=== PATIENT | male | born 1970 | race Caucasian/White ===

== ENCOUNTER 2022-01-28 17:59 | Emergency (ER) | payer OTHER ==
[~2022-01-28] VITALS: Ht 190.5 cm; Wt 147.7 kg
[2022-01-28 18:07] VITALS: BP 130/97
--- NOTE | 2022-01-28 18:36 | PHYS DOC ---
Past History Additional Past Medical Histor: drug use Past Surgical History: No Surgical History General Adult EDM: Chief Complaint: CHEST PAIN HPI: HPI: Patient is a 51-year-old male brought in by EMS for chest pain x3 days. Patient also had an episode of emesis about 20 minutes prior to calling EMS. Patient states the pain is sharp, stabbing in sensation and comes and goes. Patient states he smokes marijuana about 2 days ago but the pain was there prior. Patient does have back cigarettes a day and drinks about a pint of alcohol. Has a history of hypertension. Denies any personal or immediate family history of heart disease. Review of Systems: Review of Systems: All other systems within normal limits except for as noted in the HPI Allergies: Allergies: Allergies Coded Allergies Type Severity Reaction Last Updated Verified No Known Drug Allergies 01/28/22 No Physical Exam: PE: Constitutional: Well developed, well nourished, no acute distress, non-toxic appearance. [] HENT: Normocephalic, atraumatic, bilateral external ears normal, nose normal. [] Eyes: PERRLA, conjunctiva normal, no discharge. [] Neck: No rigidity, supple, no stridor. [] Cardiovascular: Regular rate and rhythm, brisk cap refill. Symmetric radial pulses. Chest pain not reproducible with palpation [] Lungs & Thorax: Non labored symmetric respirations, no tachypnea or respiratory distress [] Abdomen: Soft, nondistended. Skin: Warm, dry, no erythema, no rash. [] Back: Unremarkable Extremities: No deformities, range of motion grossly intact, no lower extremity edema [] Neurologic: Alert and oriented X 3, no focal deficits noted. [] Psychologic: Affect normal, judgement normal, mood normal. [] Current Patient Data: Vital Signs: Vital Signs Date Time Temp Pulse Resp B/P (MAP) Pulse Ox O2 Delivery O2 Flow Rate FiO2 01/28/22 18:07 98.1 91 18 130/97 (108) 96 Room Air EKG: EKG: Sinus rhythm, heart rate 91 bpm, normal axis, no STEMI [] Radiology/Procedures: Radiology/Procedures: [] Heart Score: C/O Chest Pain: Yes HEART Score for Chest Pain: HEART Score for Chest Pain Response (Comments) Value History Slighlty/Non-Suspicious 0 ECG Nonspecific Repolarizatio 1 Age >45 - < 65 1 Risk Factors 1 or 2 Risk Factors 1 Troponin < Normal Limit 0 Total 3 Risk Factors: Risk Factors: DM, Current or recent (<one month) smoker, HTN, HLP, family history of CAD, obesity. Risk Scores: Score 0 - 3: 2.5% MACE over next 6 weeks - Discharge Home Score 4 - 6: 20.3% MACE over next 6 weeks - Admit for Clinical Observation Score 7 - 10: 72.7% MACE over next 6 weeks - Early Invasive Strategies Course & Med Decision Making: Course & Med Decision Making Pertinent Labs and Imaging studies reviewed. (See chart for details) [] Dragon Disclaimer: Dragon Disclaimer: This electronic medical record was generated, in whole or in part, using a voice recognition dictation system. Departure Departure: Impression: Primary Impression: Chest pain Disposition: HOME / SELF CARE / HOMELESS Condition: STABLE Referrals: PCP,NO (PCP) Patient Instructions: Chest Pain (Nonspecific)-Brief OMID FOOTE MD January 28, 2022 18:36
[2022-01-28] MEDS ORDERED: IV NORMAL SALINE 1,000ML 1,000 ML IV SCH (18:45)
[2022-01-28] MEDS ORDERED: ONDANSETRON PF 4 MG/2 ML VIAL. IVP ONE (18:45)
[2022-01-28 19:03] LABS: BASO # 0.1 x10^3/uL (0.0-0.2); BASO % 1 % (0-3); EOS # 0.2 x10^3/uL (0.0-0.7); EOS % 3 % (0-3); HEMATOCRIT 45.9 % (39.0-53.0); HEMOGLOBIN 16.1 g/dL (13.0-17.5); LYMPH % 23 % (24-48); MEAN CORPUSCULAR HEMOGLOBIN 34 pg (25-35); MEAN CORPUSCULAR HGB CONC 35 g/dL (31-37); MEAN CORPUSCULAR VOLUME 98 fL (79-100); MONO # 0.6 x10^3/uL (0.0-1.1); MONO % 7 % (0-9); NEUT # 5.8 x10^3uL (1.8-7.7); NEUT % 66 % (31-73); PLATELET COUNT 214 x10^3/uL (140-400); RED BLOOD COUNT 4.68 x10^6/uL (4.30-5.70); RED CELL DISTRIBUTION WIDTH 13.3 % (11.5-14.5); WHITE BLOOD COUNT 8.8 x10^3/uL (4.0-11.0)
[2022-01-28 19:13] LABS: CREATININE 0.7 mg/dL (0.7-1.3); GFR 118.9; POTASSIUM 3.9 mmol/L (3.5-5.1)
[2022-01-28 19:25] LABS: ALBUMIN 3.1 g/dL (3.4-5.0); ALBUMIN/GLOBULIN RATIO 0.9 (1.0-1.7); MAGNESIUM 1.6 mg/dL (1.8-2.4); TOTAL BILIRUBIN 0.2 mg/dL (0.2-1.0); TOTAL PROTEIN 6.5 g/dL (6.4-8.2)
--- NOTE | 2022-01-28 20:06 | RAD ---
Exam: Chest 2 views INDICATION: Left chest pain, pain TECHNIQUE: Frontal and lateral views the chest Comparisons: None FINDINGS: The cardiomediastinal silhouette and pulmonary vessels are within normal limits. Rounded density overlying the paraspinal region seen best on lateral view measuring approximately 2.4 cm no pleural effusion. IMPRESSION: Rounded density in the paraspinal region seen only on lateral view. Recommend CT of the chest with co ntrast better evaluate Electronically signed by: Stuart Riley MD (01/28/2022 8:04 PM) T[place]
--- NOTE | 2022-01-28 20:54 | RAD ---
CT of the chest without contrast: Clinical History: Reason: Nodule on cxr, right sided chest pain / Spl. Instructions: / History: . Axial helical images of the chest were obtained without contrast. There is a minimally displaced fracture of the distal left second rib. There is mild deformity of the distal right fifth rib. There is a 6 mm x 4 mm pulmonary nodule in the left upper lobe. There is no mediastinal or hilar lymphadenopathy. Impression: 1. Noncalcified pulmonary nodule in the left likely a granuloma. Recommend a 6 month follow-up CT jade without contrast. 2. Minimally displaced rib fractures of uncertain age. End of impression PQRS Compliance Statement: One or more of the following individualized dose reduction techniques were utilized for this examinat ion: 1. Automated exposure control 2. Adjustment of the mA and/or kV according to patient size 3. Use of iterative reconstruction technique Electronically signed by: Eduard Dick III, MD (01/28/2022 8:52 PM) [facility]
[2022-01-28 22:26] LABS: BACTERIA,URINE 0 /HPF (0-FEW); CLARITY,URINE CLEAR; COLOR,URINE YELLOW; GLUCOSE,URINE NEG (NEG); NITRITE,URINE NEG (NEG); RBC,URINE OCC /HPF (0-2); SQUAMOUS EPITHELIAL CELL,UR OCC /LPF; WBC,URINE 0 /HPF (0-4)
[2022-01-28 22:38] LABS: AMPHETAMINE/METHAMPHETAMINE POS (NEG); BARBITURATES NEG (NEG); BENZODIAZEPINES NEG (NEG); CANNABINOIDS NEG (NEG); COCAINE NEG (NEG); METHADONE NEG (NEG); OPIATES NEG (NEG); PHENCYCLIDINE NEG (NEG)
== END 2022-01-28 23:18 | disposition home or self-care (01) ==
LOC: ER 17:59
DX: R07.89 Other chest pain (principal)
CPT/HCPCS: 36415; 71046; 71250; 80053; 80307; 81001; 83690; 83735; 83880; 84100; 84484; 85025; 85610; 93005; 96361; 96374; 99285; G0480; J2405; J7030